=== PATIENT | female | born 1980 | race Hispanic/Latino ===

== ENCOUNTER 2018-11-10 14:30 | Emergency (ER) | payer BC ==
[~2018-11-10] VITALS: Ht 167.6 cm; Wt 77.3 kg
[~2018-11-10 14:30] MED LIST: HEPARIN IJ; HEPARIN SC; IBUPROFEN600 MG PO; LORTAB 5/3255 MG PO; LOVENOX40 MG/0.4 SC; MOTRIN600 MG OR; MUCINEX600 MG OR; NAPROSYN500 MG PO
[2018-11-10 15:01] LABS: HEMATOCRIT 41.1 % (37.0-47.0); HEMOGLOBIN 13.6 g/dl (12.0-16.0); IMMATURE GRANULOCYTES 0.3 % (0.0-5.0); MEAN CELL VOLUME 91.7 fL CALC (80.0-100.0); MEAN CORPUSCULAR HGB 30.4 pG CALC (26.0-32.0); MEAN CORPUSCULAR HGB CONC 33.1 g/L CALC (32.0-36.0); NEUT# 6.93 thou/uL (2.00-7.15); RED BLOOD COUNT 4.48 mill/uL (4.20-5.60); RED CELL DISTRI WIDTH 13.9 % (11.5-15.5)
[2018-11-10 15:16] LABS: ANION GAP 14 (6-22 (CALC)); BUN 7 mg/dL (7-17); BUN/CREATININE RATIO 11 (12-20 (CALC)); CARBON DIOXIDE 26 mmol/l (22-30); CHLORIDE 104 mmol/l (95-108); CREATININE 0.7 mg/dL (0.5-1.0); GFR > 60 ML/MIN (>=60 (CALC)); GFR FOR AFR.AMER. > 60 ML/MIN (>=60 (CALC)); POTASSIUM 3.8 mmol/l (3.5-5.1); SODIUM 140 mmol/l (137-146)
[2018-11-10 15:32] LABS: BETA-HCG, QUANT(RESULT NUMBER) 134 mIU/mL
[2018-11-10 17:57] VITALS: BP 118/60
== END 2018-11-10 18:06 | disposition home or self-care (01) | DRG 779 ==
LOC: ED 14:30
PROVIDERS: Family Medicine
DX: O03.9 Complete or unspecified spontaneous abortion without complication (principal); F17.210 Nicotine dependence, cigarettes, uncomplicated

== ENCOUNTER 2023-02-12 08:06 | Observation (INO) | payer OTHER ==
[2023-02-12] VITALS (17 sets, daily range): BP systolic 100–128; BP diastolic 53–81
[~2023-02-12] VITALS: Ht 167.6 cm; Wt 83.4 kg
[2023-02-12 08:47] LABS: BASO% 0.6 % (0-3); EOS% 2.2 % (0-8); IMMATURE GRANULOCYTES 0.2 % (0.0-5.0); LYMPH% 18.6 % (15-41); MEAN CELL VOLUME 85.8 fL CALC (80.0-100.0); MEAN CORPUSCULAR HGB 29.3 pG CALC (26.0-32.0); MEAN CORPUSCULAR HGB CONC 34.2 g/dL CAL (32.0-36.0); MONO% 5.9 % (2-13); NEUT# 9.06 thou/uL (2.00-7.15); NEUT% 72.5 % (42-76); RED BLOOD COUNT 5.35 mill/uL (4.20-5.60); RED CELL DISTRI WIDTH 11.4 % (11.5-15.5)
[2023-02-12 08:57] LABS: ALBUMIN 4.6 g/dL (3.2-5.0); ANION GAP 20 (6-22 (CALC)); BUN 10 mg/dL (7-17); BUN/CREATININE RATIO 15 (12-20 (CALC)); CARBON DIOXIDE 22 mmol/l (22-30); CHLORIDE 95 mmol/l (95-108); CREATININE 0.7 mg/dL (0.5-1.0); GFR FOR AFR.AMER. > 60 ML/MIN (>=60 (CALC)); GFR OTHER RACES > 60 ML/MIN (>=60 (CALC)); MAGNESIUM 2.1 mg/dL (1.6-2.3); SGOT/AST 48 u/l (14-36); SODIUM 133 mmol/l (137-146); TOTAL PROTEIN 9.7 g/dL (6.3-8.2)
[2023-02-12 09:05] LABS: ALKALINE PHOSPHATASE 133 u/l (38-126); BILIRUBIN, TOTAL 1.3 mg/dL (0.02-1.3)
[2023-02-12 09:06] LABS: HEMATOCRIT 45.9 % (37.0-47.0); HEMOGLOBIN 15.7 g/dl (12.0-16.0)
[2023-02-12 10:05] LABS: URINE BILIRUBIN - DIPSTICK NEGATIVE (NEGATIVE); URINE BLOOD DIPSTICK TRACE-INTACT (NEGATIVE); URINE COLOR YELLOW; URINE GLUCOSE - DIPSTICK >=1000 mg/dL (NEGATIVE); URINE KETONE 40 mg/dL (NEGATIVE); URINE LEUK ESTERASE NEGATIVE (NEGATIVE); URINE PH 5.5 (4.5-8.0); URINE PROTEIN - DIPSTICK NEGATIVE (NEG-TRACE); URINE UROBILINOGEN - DIPSTICK 0.2 E.U./dL (0.2)
[2023-02-12 10:07] LABS: URINE NITRITE - DIPSTICK NEGATIVE (Negative)
[2023-02-13 04:47] VITALS: BP 97/46
[2023-02-13 05:49] LABS: CHOLESTEROL HDL RATIO 4.4 (<4.4 (CALC)); MAGNESIUM 1.9 mg/dL (1.6-2.3)
[2023-02-13 07:21] VITALS: BP 111/62
[2023-02-13] MEDS ORDERED: LANTUS SOL100 UNIT/M SC (09:27)
== END 2023-02-13 12:00 | disposition home or self-care (01) ==
LOC: ED 08:06 → MS2 11:01 → ED 11:15 → MS2 11:15
PROVIDERS: Family Medicine; ADMIT Internal Medicine; ATTEND Internal Medicine
DX: E11.65 Type 2 diabetes mellitus with hyperglycemia (principal); F17.210 Nicotine dependence, cigarettes, uncomplicated; Z86.718 Personal history of other venous thrombosis and embolism
CPT/HCPCS: G0378